=== PATIENT | female | born 1990 | race Caucasian/White ===

== ENCOUNTER 2021-04-25 14:57 | Emergency (ER) | payer OTHER ==
[~2021-04-25] VITALS: Ht 162.6 cm; Wt 49.9 kg
--- NOTE | 2021-04-25 15:13 | NUR ---
URINE SPECIMEN COLLECTED AND SENT TO LAB.
--- NOTE | 2021-04-25 15:15 | NUR ---
AT BEDSIDE FOR EVAL.
--- NOTE | 2021-04-25 15:21 | NUR ---
US AT BEDSIDE
[2021-04-25 16:08] LABS: BASOPHILS % (AUTO) 0.6 % (0.0-2.0); EOSINOPHILS % (AUTO) 2.4 % (0.0-6.0); HEMATOCRIT 41 % (33-45); HEMOGLOBIN 14.2 g/dL (11.5-14.8); LYMPHOCYTES # (AUTO) 1.8 K/uL (0.8-4.8); MEAN CORPUSCULAR HGB CONC 34 g/dl (31.0-36.0); MEAN CORPUSCULAR VOLUME 90 fL (82-100); MONOCYTES # (AUTO) 0.4 K/uL (0.1-1.30); MONOCYTES % (AUTO) 6.3 % (2.0-12.0); NEUTROPHILS # (AUTO) 3.9 K/uL (1.8-8.9); NEUTROPHILS % (AUTO) 61.7 % (43.0-81.0); PLATELET COUNT (AUTO) 184 K/uL (150-450); RED BLOOD CELL COUNT(AUTO) 4.58 MIL/uL (4.0-5.2); WHITE BLOOD COUNT (AUTO) 6.3 K/uL (4.3-11.0)
--- NOTE | 2021-04-25 16:13 | NUR ---
test still pending for xray 1617
[2021-04-25 16:14] LABS: CALCIUM, SERUM 8.9 mg/dL (8.5-10.1); CREATININE 0.7 mg/dL (0.6-1.3); POTASSIUM 4.1 mmol/L (3.5-5.1)
[2021-04-25 16:17] LABS: BILIRUBIN,URINE NEGATIVE (NEGATIVE); COLOR,URINE YELLOW (YELLOW); LEUKOCYTE ESTERASE ,URINE NEGATIVE (NEGATIVE); NITRITE, URINE NEGATIVE (NEGATIVE); PROTEIN,URINE NEGATIVE (NEGATIVE); UGLUCOSE NEGATIVE (NEGATIVE); UROBILINOGEN,URINE 0.2 EU/dL (0.2)
[2021-04-25] MEDS ORDERED: IBUP-1953 PO (18:02)
[2021-04-25 18:07] VITALS: BP 133/76
--- NOTE | 2021-04-25 18:07 | NUR ---
Patient discharged to home in stable condition. Written and verbal after care instructions given. Patient verbalizes understanding of instruction.
== END 2021-04-25 18:07 | disposition home or self-care (01) ==
LOC: ER 15:11
DX: R10.12 Left upper quadrant pain (principal)
CPT/HCPCS: 36415; 71100-TC; 76770-TC; 80048-TC; 84703-TC; 85025-TC

== ENCOUNTER 2022-07-26 10:43 | Emergency (ER) | payer OTHER ==
[~2022-07-26] VITALS: Ht 165.1 cm; Wt 49.9 kg
[~2022-07-26 10:43] MED LIST: IBUP-1953 PO
--- NOTE | 2022-07-26 10:45 | NUR ---
RECEIVED PT from home c/o pain and abscess on rt sideon preniale area swallen and redness on rt side of preniale with small ozzing and drannage
--- NOTE | 2022-07-26 10:55 | NUR ---
Female gullet slitter accompanied female patient for (JACQUELYN).
--- NOTE | 2022-07-26 11:05 | NUR ---
Kristel murguia in ED - 07/26/22 at 1249 by BETHANIE RECEIVED PT 32 YRS FEMALE CAME FROM HOME C/O pain on prenial for 3 days painfull
--- NOTE | 2022-07-26 11:35 | NUR ---
Female electrical apprentice accompanied female patient for (JACQUELYN).
[2022-07-26] MEDS ORDERED: LIDOCAINE 1%-EPI 1:100,000 20 ML VIAL TP ONE (12:00)
[2022-07-26] MEDS ORDERED: LIDOCAINE 1%-EPI 1:100,000 20 ML VIAL ONE (12:33)
--- NOTE | 2022-07-26 12:36 | NUR ---
I&D DONE ANT BED SIDE BY DR. VALLADARES
[2022-07-26] MEDS ORDERED: CEPH500C2 PO (12:51)
--- NOTE | 2022-07-26 12:55 | NUR ---
Patient discharged to home in stable condition. Written and verbal after care instructions given. Patient verbalizes understanding of instruction.
[2022-07-26 13:00] VITALS: BP 156/112
== END 2022-07-26 13:01 | disposition home or self-care (01) ==
LOC: ER 10:50
DX: L02.214 Cutaneous abscess of groin (principal); Z60.2 Problems related to living alone
CPT/HCPCS: 99284; 56405; J3490